=== PATIENT | female | born 1955 | race Caucasian/White ===

== ENCOUNTER 2016-06-15 21:02 | Emergency (ER) | payer SELFPAY ==
[~2016-06-15] VITALS: Ht 162.6 cm; Wt 63.5 kg
[2016-06-15 21:10] VITALS: BP 164/100
[2016-06-15 21:57] LABS: Basophils # (auto) 0 uL; Basophils % (auto) 0.3 % (0.0-2.0); Eosinophils # (auto) 0.1 uL; Hematocrit 47.3 % (36.0-46.0); Hemoglobin 15.5 g/dL (12.2-16.2); Lymphocytes # (auto) 2.5 uL; Lymphocytes % (auto) 29.8 % (10.0-50.0); Mean Corpuscular Hemoglobin 32.6 pg (28.0-32.0); Mean Corpuscular Hgb Conc. 32.8 g/dL (32.0-36.0); Mean Corpuscular Volume 99.3 fL (80.0-100.0); Mean Platelet Volume 8.8 fL (7.4-10.4); Monocytes # (auto) 0.6 uL; Monocytes % (auto) 6.5 % (0.0-12.0); Neutrophils # (auto) 5.3 uL; Neutrophils % (auto) 62.4 % (37.0-80.0); Platelet Count (auto) 275 10^3/uL (140-450); Red Cell Distribution Width 13.4 % (11.6-16.0); White Blood Cell 8.6 10^3/uL (4.4-10.8)
[2016-06-15 22:14] LABS: BUN/Creatinine Ratio 11.3; Calcium 8.7 mg/dL (8.5-10.1)
[2016-06-15] MEDS ORDERED: SODIUM CHLORIDE 0.9% 1,000 ML IV ONE (22:15)
[2016-06-15 22:17] LABS: Bilirubin, Total 0.3 mg/dL (0.2-1.0); Total Protein 7.7 g/dL (6.4-8.2)
[2016-06-15] MEDS ORDERED: ACETAMINOPHEN 325 MG TAB PO ONE ×2 (22:40→23:00)
== END 2016-06-16 00:16 | disposition left against medical advice (07) ==
LOC: ER 21:08
DX: F10.129 Alcohol abuse with intoxication, unspecified (principal); R55 Syncope and collapse; F17.210 Nicotine dependence, cigarettes, uncomplicated
CPT/HCPCS: 36415; 70450; 80053; 80320; 84484; 85025; 96360; 99285; G0434